=== PATIENT | male | born 1965 | race Caucasian/White ===

== ENCOUNTER 2020-12-09 15:30 | Inpatient (IN) | payer MEDICAID ==
[~2020-12-09] VITALS: Ht 180.3 cm; Wt 69.9 kg
--- NOTE | 2020-12-09 15:45 | NUR ---
TO ER BED 2 FOR EVAL, URINE SPECIMEN COLLECTED
--- NOTE | 2020-12-09 15:54 | NUR ---
SEEN BY MEREDITH VALDOVINOS,ORDERS CARRIED OUT
[2020-12-09] MEDS ORDERED: MORPHINE SULFATE INJ 2 MG/ML DISP.SYRIN ONE (15:57)
[2020-12-09] MEDS ORDERED: ONDANSETRON HCL/PF 4 MG/2 ML VIAL ONE (15:57)
[2020-12-09 15:58] LABS: BASOPHILS % (AUTO) 0.2 % (0.0-2.0); EOSINOPHILS % (AUTO) 0.6 % (0.0-6.0); HEMATOCRIT 46 % (39-51); HEMOGLOBIN 15.8 g/dL (13.5-17.5); LYMPHOCYTES # (AUTO) 0.8 K/uL (0.8-4.8); LYMPHOCYTES % (AUTO) 6.5 % (20.0-44.0); MEAN CORPUSCULAR HGB CONC 34 g/dl (31.0-36.0); MEAN CORPUSCULAR VOLUME 93 fL (80-96); MONOCYTES # (AUTO) 1.1 K/uL (0.1-1.30); MONOCYTES % (AUTO) 9.1 % (2.0-12.0); NEUTROPHILS # (AUTO) 10.2 K/uL (1.8-8.9); NEUTROPHILS % (AUTO) 83.6 % (43.0-81.0); PLATELET COUNT (AUTO) 214 K/uL (150-450); RED BLOOD CELL COUNT(AUTO) 4.92 MIL/uL (4.5-6.0); WHITE BLOOD COUNT (AUTO) 12.2 K/uL (4.3-11.0)
[2020-12-09] MEDS ORDERED: IV NS 0.9% 1,000 ML BAG IV ONE (16:00)
[2020-12-09] MEDS ORDERED: MORPHINE SULFATE INJ 2 MG/ML DISP.SYRIN IV ONE (16:00)
[2020-12-09] MEDS ORDERED: ONDANSETRON HCL/PF 4 MG/2 ML VIAL IVP ONE (16:00)
--- NOTE | 2020-12-09 16:04 | NUR ---
MEDICATED ORDERED,NO ADVERSE REACTION NOTED
[2020-12-09 16:08] LABS: CALCIUM, SERUM 9.4 mg/dL (8.5-10.1); CREATININE 1.3 mg/dL (0.6-1.3); POTASSIUM 3.9 mmol/L (3.5-5.1)
[2020-12-09 16:14] LABS: ALBUMIN 3.3 g/dL (3.4-5.0); BILIRUBIN,DIRECT 0.6 mg/dL (0.0-0.2); BILIRUBIN,TOTAL 1.9 mg/dL (0.2-1.0); TOTAL PROTEIN, SERUM 8.1 g/dL (6.4-8.2)
[2020-12-09] MEDS ORDERED: IOHEXOL-300 100 ML VIAL IV ONE (16:23)
[2020-12-09] MEDS ORDERED: IV NS 0.9% 250 ML IV ONE (16:23)
[2020-12-09] MEDS ORDERED: PIPERACILLIN /TAZOBACTAM 3.375 G in IV D5W 50 ML IV ONE (17:00)
--- NOTE | 2020-12-09 17:11 | NUR ---
CALLED NURSING SUP FOR M/S BED.
--- NOTE | 2020-12-09 17:13 | NUR ---
DUMPER AT BEDSIDE FOR BLOOD CULTURE DRAW.
[2020-12-09] MEDS ORDERED: MAGNESIUM HYDROXIDE 30 ML UDC PO PRN (18:00)
[2020-12-09] MEDS ORDERED: ACETAMINOPHEN 325 MG TABLET PO PRN (18:00)
[2020-12-09] MEDS ORDERED: MAG HYDROX/AL HYDROX/SIMETH 30 ML UDC PO PRN (18:00)
[2020-12-09] MEDS ORDERED: Z GUARD REMEDY 2 OZ OINT TP PRN (18:00)
[2020-12-09] MEDS ORDERED: MORPHINE SULFATE INJ 2 MG/ML DISP.SYRIN IV PRN (18:00)
--- NOTE | 2020-12-09 18:06 | NUR ---
INFORMED DR. NOLAN PATIENT IS COVID POSITIVE. PER MD, HE WILL RE-EVALUATE PATIENT TOMORROW MORNING, AND TO KEEP THE CURRENT SCHEDULE FOR TOMORROW. NURSING CHEESEMAKER HELPER MADE AWARE.
--- NOTE | 2020-12-09 19:21 | NUR ---
MS 102
--- NOTE | 2020-12-09 19:42 | NUR ---
REPORT GIVEN TO ANOOP CHANG FOR [facility]. PT TRANSFERED.
--- NOTE | 2020-12-09 19:42 | NUR ---
COVID PCR COLLECTED, SENT TO LAB.
[2020-12-09 20:10] VITALS: BP 117/96
--- NOTE | 2020-12-09 20:10 | NUR ---
ADMIT NOTE ADMITTED PATIENT FROM ER TO ROOM 102. ABLE TO AMBULATE SELF TO BED SAFELY. PATIENT IS ALERT AND ORIENTED X4, ABLE TO MAKE NEEDS KNOWN. ON ROOM AIR, O2 SAT 99%. NO SOB OR ANY RESPIRATORY DISTRESS. PATIENT IS IN ISOLATION DUE TO POSITIVE COVID-19. ISOLATION PRECAUTIONS OBSERVED. COMPLAINED OF 1-2 TOLERABLE RIGHT LOWER QUADRANT PAIN. IV ACCESS ON LEFT AC #20 PATENT AND INTACT. SKIN IS CLEAN AND INTACT. ORIENTED PATIENT TO ROOM AND CALL LIGHT. BED LOCKED AND IN LOWEST POSITION. SAFETY MEASURES MAINTAINED. ALL NEEDS ANTICIPATED.
[2020-12-09] MEDS: IV NS 0.9% 1,000 ML IV PRN (22:02)
[2020-12-09] MEDS: PIPERACILLIN /TAZOBACTAM 3.375 G in IV D5W 100 ML IV SCH (22:03)
[2020-12-10] MEDS: ONDANSETRON HCL/PF 4 MG/2 ML VIAL IVP PRN ×2 (01:42→06:49)
[2020-12-10 04:00] VITALS: BP 132/68
[2020-12-10] MEDS: PIPERACILLIN /TAZOBACTAM 3.375 G in IV D5W 100 ML IV SCH ×3 (06:41→22:13)
[2020-12-10 06:58] LABS: BASOPHILS % (AUTO) 0.1 % (0.0-2.0); EOSINOPHILS % (AUTO) 0.5 % (0.0-6.0); HEMATOCRIT 43 % (39-51); HEMOGLOBIN 14.5 g/dL (13.5-17.5); LYMPHOCYTES # (AUTO) 0.5 K/uL (0.8-4.8); LYMPHOCYTES % (AUTO) 6.1 % (20.0-44.0); MEAN CORPUSCULAR HGB CONC 34 g/dl (31.0-36.0); MEAN CORPUSCULAR VOLUME 95 fL (80-96); MONOCYTES # (AUTO) 0.7 K/uL (0.1-1.30); MONOCYTES % (AUTO) 9.4 % (2.0-12.0); NEUTROPHILS # (AUTO) 6.5 K/uL (1.8-8.9); NEUTROPHILS % (AUTO) 83.9 % (43.0-81.0); PLATELET COUNT (AUTO) 204 K/uL (150-450); RED BLOOD CELL COUNT(AUTO) 4.56 MIL/uL (4.5-6.0); WHITE BLOOD COUNT (AUTO) 7.7 K/uL (4.3-11.0)
--- NOTE | 2020-12-10 07:16 | NUR ---
RN NOTE PATIENT IS ALERT AND ORIENTED X4, ABLE TO MAKE NEEDS KNOWN. ON ROOM AIR, O2 SAT 97%. NO SOB OR ANY RESPIRATORY DISTRESS. PATIENT IS IN ISOLATION DUE TO POSITIVE COVID-19. ISOLATION PRECAUTIONS OBSERVED. PATIENT COMPLAINED OF NAUSEA, ZOFRAN GIVEN ORDERED AND EFFECTIVE. IV ACCESS ON LEFT AC #20 RUNNING IV NS @ 75ML/HR. ALL NEEDS ATTENDED PROMPTLY. BED LOCKED AND IN LOWEST POSITION. SAFETY MEASURES MAINTAINED. ENDORSED TO AM SHIFT.
[2020-12-10 07:39] LABS: CALCIUM, SERUM 8.9 mg/dL (8.5-10.1); CREATININE 1.3 mg/dL (0.6-1.3); MAGNESIUM 2.2 mg/dL (1.8-2.4); PHOSPHORUS 3.8 mg/dL (2.5-4.9); POTASSIUM 4.5 mmol/L (3.5-5.1)
--- NOTE | 2020-12-10 07:58 | NUR ---
MS RN NOTE PATIENT IS ALERT AND ORIENTED X4, ABLE TO MAKE NEEDS KNOWN. ON ROOM AIR, O2 SAT 97%. NO SOB BUT C\O ABDOMINAL 3\10 LEVEL OF PAIN PAIN, STATED NO PAIN MEDICATION WANT AT THIS TIME WILL MONITOR CLOSELY NO RESPIRATORY DISTRESS NOTED PATIENT IS IN ISOLATION DUE TO POSITIVE COVID-19. ISOLATION PRECAUTIONS OBSERVED. IV ACCESS ON LEFT AC #20 RUNNING IV NS @ 75ML/HR. ALL NEEDS ATTENDED PROMPTLY. BED LOCKED AND IN LOWEST POSITION. SAFETY MEASURES MAINTAINED
--- NOTE | 2020-12-10 08:00 | NUR ---
MS RN NOTE SEEN BY DR JACKSON UPDATED PATIENT CONDITION OK TO HAVE CLEAR LIQUID DIET AWAITING FOR SURGEON WILL F\U
--- NOTE | 2020-12-10 09:00 | NUR ---
MS RN NOTE SEEN BY DR PERSON NO SURGERY NEEDED, OK TO CONT CLEAR LIQUID DIET WILL CONT TO MONITOR
--- NOTE | 2020-12-10 13:00 | NUR ---
ms rn note per dr meri richardson to start soft diet
--- NOTE | 2020-12-10 15:00 | NUR ---
T MS RN NOTE RESTING COMFORTABLY, NO C\O PAIN OR ABDOMINAL DISCOMFORT, ALL NEEDS ATTENDED , WILL CONT TO MONITOR
[2020-12-10 16:00] VITALS: BP 132/80
--- NOTE | 2020-12-10 18:26 | NUR ---
MS RN NOTE ROUNDS MADE ,ALL NEEDS ATTENDED ,ON IVF ORDERED, HAVING DINNER , NO NAUSEA OR VOMITING NOTED ,L SAFETY MEASURE PROVIDED , CALL LIGHT WITHIN REACH, WILL MONITOR
--- NOTE | 2020-12-10 19:30 | NUR ---
RN NOTE RECEIVED PATIENT ON ISOLATION FOR COVID 19. PATIENT IS IN BED. A/OX4. TOLERATING ROOM AIR. RESPIRATION ARE EVEN AND UNLABORED. NO S/S SOB NOTED. NO C/O PAIN AT THIS TIME. IN NO APPARENT DISTRESS. IV ACCESS IN LAC#20 RUNNING NS@75ML/HR. BED IS LOW AND LOCKED, HOB ELEVATED IN SEMI FOWLERS, SIDE RAILS UP X2, CALL LIGHT WITHIN REACH. WILL CONTINUE TO MONITOR THROUGHOUT SHIFT.
[2020-12-10 20:00] VITALS: BP 126/76
[2020-12-10] MEDS: IV NS 0.9% 1,000 ML IV PRN (22:13)
[2020-12-11] MEDS: ONDANSETRON HCL/PF 4 MG/2 ML VIAL IVP PRN (00:44)
--- NOTE | 2020-12-11 01:22 | NUR ---
RN NOTE GAVE REPORT TO BROCK CHANG FOR CONTINUATION OF CARE. PATIENT REMAINS IN STABLE CONDITION.
[2020-12-11 04:00] VITALS: BP 135/81
[2020-12-11] MEDS: PIPERACILLIN /TAZOBACTAM 3.375 G in IV D5W 100 ML IV SCH ×3 (06:00→23:34)
--- NOTE | 2020-12-11 06:32 | NUR ---
MS RN CLOSING NOTE PT IS AWAKE IN BED. A/O X4. PT IS STABLE ON ROOM AIR. NO SOB OR S/S OF RESPIRATORY DISTRESS NOTED. IV ACCESS IS INTACT, PATENT, AND FLUSHING WELL. ALL NEEDS HAVE BEEN MET. SAFETY PRECAUTIONS MAINTAINED AT ALL TIMES. BED IN LOWEST LOCKED POSITION, HOB ELEVATED, SIDE RAILS UP X2. CALL LIGHT AND TABLE WITHIN REACH. WILL ENDORSE TO ONCOMING NURSE FOR [facility].
[2020-12-11 07:14] LABS: CALCIUM, SERUM 8.9 mg/dL (8.5-10.1); CREATININE 1.4 mg/dL (0.6-1.3); POTASSIUM 4.1 mmol/L (3.5-5.1)
[2020-12-11 07:18] LABS: BASOPHILS % (AUTO) 0.3 % (0.0-2.0); EOSINOPHILS % (AUTO) 1.3 % (0.0-6.0); HEMATOCRIT 40 % (39-51); HEMOGLOBIN 13.9 g/dL (13.5-17.5); LYMPHOCYTES # (AUTO) 0.6 K/uL (0.8-4.8); LYMPHOCYTES % (AUTO) 10.9 % (20.0-44.0); MEAN CORPUSCULAR HGB CONC 35 g/dl (31.0-36.0); MEAN CORPUSCULAR VOLUME 94 fL (80-96); NEUTROPHILS # (AUTO) 3.5 K/uL (1.8-8.9); NEUTROPHILS % (AUTO) 68.5 % (43.0-81.0); PLATELET COUNT (AUTO) 242 K/uL (150-450); RED BLOOD CELL COUNT(AUTO) 4.25 MIL/uL (4.5-6.0); WHITE BLOOD COUNT (AUTO) 5.1 K/uL (4.3-11.0)
[2020-12-11 09:12] LABS: BAND % (MANUAL) 14 % (0.0-5.0); LYMPHOCYTES % (MANUAL) 9 % (16-48); MONOCYTES % (MANUAL) 20 % (0-11.0); NEUTROPHILS % (MANUAL) 57 (42-76)
[2020-12-11] MEDS ORDERED: BISACODYL (5 MG) 5 MG TABLET.DR PO PRN (09:30)
[2020-12-11 12:14] VITALS: BP 125/71
[2020-12-11] MEDS ORDERED: IV NS 0.9% 1,000 ML IV SCH (13:30)
--- NOTE | 2020-12-11 19:13 | NUR ---
PATIENT VERY COMPLIANT CONSIDERVIVIANA DURAND, THE PERFECT PATIENT, HE WAS AWAKE IN BED AND AMBULATED TO AND FROM THE BATH ROOM ON HIS OWN, ADVISED TO ASK FOR HELP BUT GAIT WAS STEADY, CAREFUL AND AWARE, A/O X4. STABLE ON ROOM AIR. NO SOB OR NO S/S OF RESPIRATORY DISTRESS NOTED. NO ADVERSE SIDE EFFECTS NOTED FORM MEDICATIONS, IV ACCESS INTACT, PATENT, AND FLUSHING WELL. SAFETY PRECAUTIONS MAINTAINED AT ALL TIMES. BED IN LOWEST LOCKED POSITION, HOB ELEVATED, SIDE RAILS UP X2. CALL LIGHT AND TABLE WITHIN REACH. ENCOURAGED TO REST DRINK FLUIDS AND TO TRY TO EAT HIS HEALTHY MEALS HIS APPETITE IS VERY LITTLE AT THIS TIME HE STATED.
[2020-12-11] MEDS ORDERED: IV NS 0.9% 1,000 ML IV PRN (19:30)
[2020-12-11 20:00] VITALS: BP 129/79
[2020-12-12 05:00] VITALS: BP 119/71
[2020-12-12] MEDS: PIPERACILLIN /TAZOBACTAM 3.375 G in IV D5W 100 ML IV SCH (06:27)
[2020-12-12] MEDS ORDERED: LEVO500T90 PO (10:24)
== END 2020-12-12 14:38 | disposition home or self-care (01) | DRG 248 ==
LOC: ER 15:30 → MEDSG1 19:44
PROVIDERS: ADMIT Internal Medicine; ATTEND Internal Medicine
DX: K35.33 Acute appendicitis with perforation, localized peritonitis, and gangrene, with abscess (principal); U07.1 COVID-19; E43 Unspecified severe protein-calorie malnutrition; N17.0 Acute kidney failure with tubular necrosis; E87.8 Other disorders of electrolyte and fluid balance, not elsewhere classified; E86.0 Dehydration; E87.1 Hypo-osmolality and hyponatremia; D72.829 Elevated white blood cell count, unspecified; E88.09 Other disorders of plasma-protein metabolism, not elsewhere classified; Z68.20 Body mass index [BMI] 20.0-20.9, adult; K52.9 Noninfective gastroenteritis and colitis, unspecified; E80.6 Other disorders of bilirubin metabolism; E86.1 Hypovolemia
CPT/HCPCS: 36415; 80048-TC; 80076-TC; 83605-TC; 83690-TC; 83735-TC; 84100-TC; 84443-TC; 85025-TC; 85730-TC; 87040-TC; 87081-TC; C9803; G0378; J2270; J2405; J2543; J7030; J7050; J7060; Q9967; U0003